=== PATIENT | female | born 1945 | race Caucasian/White ===

== ENCOUNTER → 2017-03-10 | Outpatient (CLI) | payer OTHER ==
[2016-03-12 13:56] VITALS: BP 129/77; PULSE 68
[~2017-03-10] MED LIST: CLR10 PO; FLUT0.0529 INTNAS; GABA-113 PO; GENTEAL EYE DROPS OPB; GLC/500 PO; LISI-788 PO; PRLSR20 PO; TAMO20TA47 PO
[2017-03-10 13:56] VITALS: BP 129/81; PULSE 87; TEMP 37; O2SAT 98
--- NOTE | 2017-03-10 15:16 | Radiation Oncology Follow-Up ---
Radiation Oncology Follow-Up Date of Visit Mar 10, 2017. Reason For Visit Annual follow-up Radiation Completion Date 08/16/15 Diagnosis (1) Malignant neoplasm of upper-outer quadrant of female breast Status: Resolved Onset Date: 11/23/2014 Histology Subtype: lobular Stage: lll Permanent Comment: Status post right breast carcinoma 1992 Status post mastectomy with TRAM flap reconstruction Status post systemic chemotherapy Antiestrogen therapy for 5 years Abnormal left breast mammogram Status post core biopsy 11/23/2014 revealing invasive lobular carcinoma estrogen receptor positive, progesterone receptor negative, HER-2/ghanshyam negative Status post left simple mastectomy and sentinel lymph node biopsy and axillary dissection February 05 2015 placement of tissue manuscripts curator Stage [id number] M0 Status post completion of radiation therapy 08/16/2015 received 6120 cGy Status post exchange of left adjustable implant for gel implant with open capsulotomy and She'll ectomy, revision right breast reconstruction with elevation of the breast mound, excision of a portion of the flap skin, and closure of the defect with local flap. Excision of bilateral lateral chest tissue and closure of resulting defects with local flaps 01/29/2016 Last Edited By: Toya Flowers on Mar 12, 2016 16:04 History of Present Illness Ms. Harris is a 71-year-old female without a family history of breast cancer. The patient's mother was diagnosed with ovarian cancer at age 66. Patient had a prior history of a right breast carcinoma diagnosed in 1992. She underwent a mastectomy with a TRAM flap reconstruction. She required systemic chemotherapy followed by 5 years of tamoxifen. She has had no evidence of recurrence in the right chest wall. She has been followed with screening left breast mammograms. Her most recent screening mammogram was on 11/17/2014 that was compared to prior images from 2013 and 2012. This showed mild asymmetry at the middle depths superiorly with irregular anterior parenchymal margin at 2:00. The area of question persisted on spot and additional views and was nonpalpable. A targeted ultrasound showed a hypoechoic irregular non-parallel indistinct shadowing area measuring 0.4 x 0.5 cm smaller than the mammographic abnormality. An ultrasound core biopsy was recommended. A prominent axillary lymph node was noted but he has been unchanged for years. On 11/23/2014 patient underwent an ultrasound-guided biopsy of the hypoechoic lesion noted within the left breast at the 2 o'clock position 3 cm in the nipple. This measured 0.5 x 0.5 x 0.6 cm. This tissue identified an invasive carcinoma, lobular type, grade 2. Estrogen receptors were strongly positive ( 100% nuclear positivity) progesterone receptor were negative (less than 1% nuclear positivity. HER-2/ghanshyam oncogene expression is negative. Accession #: [id number]. The patient subsequently met with Dr. Artie Pineda to discuss possible mastectomy and reconstruction given her history of a right breast carcinoma and TRAM flap reconstruction. They've talked about a left mastectomy with immediate placement of tissue manuscripts curator.. Patient was also seen by Dr. Talya Horton and the patient was scheduled for the left breast mastectomy with immediate reconstruction. This was performed on 02/05/2015. This revealed an infiltrating lobular carcinoma grade 1 of 3. Tumor however measured 3.0 x 2.5 x 1.5 cm with evidence of LCIS. The margins were negative. Tumor was located 2 cm from the deep margin. No lymphovascular or perineural invasion was seen. 14 lymph nodes were taken 7 of which contained metastatic disease. 3 nodes contained a macro metastasis and 4 nodes contained micrometastasis. The size of the largest metastatic deposit was a 2 cm. No extranodal extension was identified. Case: -01/09/2002-S. The patient is recovering well from surgery. She has the tissue manuscripts curator in place. They have not yet started the expansion. She is scheduled to see Dr. Slater for discussion of the role of adjuvant chemotherapy. This will likely be recommended. We were asked to see her in referral for evaluation and discussion of the role of adjuvant radiation. She underwent chemotherapy with Taxotere and cyclophosphamide. She received 4 cycles of treatment. She completed the chemotherapy 03/28/2015. She did not require any reductions in treatment or delay of treatment. She then returned to our office to undergo radiation therapy. She completed radiation therapy 08/16/2015. She received 6120 cGy. Interim History She's been doing well over this past year she does have mild joint discomfort associated with the tamoxifen. This is improved compared to the discomfort she felt when on the aromatase inhibitor. She has noted no changes to the reconstructed breast. There are no masses or tenderness and no axillary adenopathy. She has not had any difficulty with reaccumulation of the seromas that had recurred over last summer. Allergies Coded Allergies: Cephalexin (Verified Allergy, Mild, Rash , 03/10/17) Home Medications Scheduled Fluticasone Propionate (Nasal) (Flonase), 1-2 SPRAYS INTNAS QAM Gabapentin (Neurontin), 300 MG PO TID Lisinopril/Hctz (Zestoretic 20MG/25MG), 1 TAB PO QAM Metformin Hcl (Glucophage), 500 MG PO BID Omeprazole (Prilosec), 20 MG PO QAM Tamoxifen (Nolvadex), 20 MG PO DAILY Scheduled PRN Loratadine (Claritin), 10 MG PO QAM PRN for PRN [Genteal Eye Drops], 1 DROP OPB DAILY PRN for PRN Review of Systems Gastrointestinal: Symptoms: WNL Oral: Symptoms: No Problems Respiratory: Symptoms: WNL Urinary: Symptoms: WNL Comments: nocturia times1 Skin: Symptoms: No Problems Breast: Right Upper Arm Measurement: 33.5 Right Mid Arm Measurement: 26.7 Right Wrist Measurement: 16.2 Left Upper Arm Measurement: 36.5 Left Mid Arm Measurement: 26.8 Left Wrist Measurement: 15.7 Arm Dominence: Right Patient Cosmetic Evaluation: Excellent Staff Cosmetic Evalaluation: Excellent Physical Exam Vital Signs Date Time Temp Pulse Resp B/P (MAP) Pulse Ox O2 Delivery O2 Flow Rate FiO2 03/10/17 13:56 37.0 87 18 129/81 98 Pain: Side: Bilateral Patient Pain Scale: 0 - 10 Initial Pain Intensity: 0.0 Fatigue: None General Appearance: no apparent distress Eyes: normal inspection, EOMI ENT: normal ENT inspection, hearing grossly normal Neck: no adenopathy, thyroid normal Respiratory/Chest: lungs clear, no respiratory distress, no accessory muscle use Breast: Breast examination reveals bilateral TRAM flap reconstructions. There are no masses or tenderness and no axillary adenopathy. She has no skin retractions. There is no hyperpigmentation. Using the Guston score cosmesis she has a good outcome. Cardiovascular: regular rate, rhythm, no gallop, no murmur Abdomen: non tender, soft, no organomegaly Extremities: no pedal edema Neurologic/Psychiatric: no motor/sensory deficits, alert, normal mood/affect Skin: warm/dry Assessment & Plan Plan: Continuing her follow-up with her primary care provider and medical oncology. She continues on tamoxifen. She'll return to our office in 1 year. We asked her to call our office if she has any questions or concerns. Total Time In Follow-Up I spent 20 minutes speaking to the patient and performing examination. I spent 15 minutes reviewing information and completing note. Copy To Alli Price MD; Emil Slater M.D. Problem Qualifiers (1) Malignant neoplasm of upper-outer quadrant of female breast: Estrogen receptor status: positive Laterality: left Qualified Codes: C50.412 - Malignant neoplasm of upper-outer quadrant of left female breast; Z17.0 - Estrogen receptor positive status [ER+]
== END | disposition home or self-care (01) ==
LOC: C.ONC 13:44
PROVIDERS: ATTEND Physician Assistant Medical
DX: Z08 Encounter for follow-up examination after completed treatment for malignant neoplasm (principal); Z92.3 Personal history of irradiation; Z85.3 Personal history of malignant neoplasm of breast

== ENCOUNTER → 2018-03-09 | Outpatient (CLI) | payer OTHER ==
[2016-03-12 13:56] VITALS: BP 129/77; PULSE 68
[~2018-03-09] MED LIST changes: +CARBSOL4 OPB; -TAMO20TA47 PO; +TAMO20TA9 PO
[2018-03-09 13:27] VITALS: BP 166/91; PULSE 69; TEMP 36.7; O2SAT 95
--- NOTE | 2018-03-09 14:35 | Radiation Oncology Follow-Up ---
Radiation Oncology Follow-Up Date of Visit Mar 09, 2018. Reason For Visit Annual follow-up Radiation Completion Date 08/16/15 Diagnosis (1) Malignant neoplasm of upper-outer quadrant of female breast Status: Resolved Onset Date: 11/23/2014 Stage: lll Permanent Comment: Status post right breast carcinoma 1992 Status post mastectomy with TRAM flap reconstruction Status post systemic chemotherapy Antiestrogen therapy for 5 years Abnormal left breast mammogram Status post core biopsy 11/23/2014 revealing invasive lobular carcinoma estrogen receptor positive, progesterone receptor negative, HER-2/ghanshyam negative Status post left simple mastectomy and sentinel lymph node biopsy and axillary dissection February 05 2015 placement of tissue legal internship Stage [id number] M0 Status post completion of radiation therapy 08/16/2015 received 6120 cGy Status post exchange of left adjustable implant for gel implant with open capsulotomy and , revision right breast reconstruction with elevation of the breast mound, excision of a portion of the flap skin, and closure of the defect with local flap. Excision of bilateral lateral chest tissue and closure of resulting defects with local flaps 01/29/2016 Last Edited By: Toya Flowers on Mar 09, 2018 14:01 History of Present Illness Ms. Harris is without a family history of breast cancer. The patient's mother was diagnosed with ovarian cancer at age 66. Patient had a prior history of a right breast carcinoma diagnosed in 1992. She underwent a mastectomy with a TRAM flap reconstruction. She required systemic chemotherapy followed by 5 years of tamoxifen. She has had no evidence of recurrence in the right chest wall. She has been followed with screening left breast mammograms. Her most recent screening mammogram was on 11/17/2014 that was compared to prior images from 2013 and 2012. This showed mild asymmetry at the middle depths superiorly with irregular anterior parenchymal margin at 2:00. The area of question persisted on spot and additional views and was nonpalpable. A targeted ultrasound showed a hypoechoic irregular non-parallel indistinct shadowing area measuring 0.4 x 0.5 cm smaller than the mammographic abnormality. An ultrasound core biopsy was recommended. A prominent axillary lymph node was noted but he has been unchanged for years. On 11/23/2014 patient underwent an ultrasound-guided biopsy of the hypoechoic lesion noted within the left breast at the 2 o'clock position 3 cm in the nipple. This measured 0.5 x 0.5 x 0.6 cm. This tissue identified an invasive carcinoma, lobular type, grade 2. Estrogen receptors were strongly positive ( 100% nuclear positivity) progesterone receptor were negative (less than 1% nuclear positivity. HER-2/ghanshyam oncogene expression is negative. Accession #: [id number]. The patient subsequently met with Dr. Artie Pineda to discuss possible mastectomy and reconstruction given her history of a right breast carcinoma and TRAM flap reconstruction. They've talked about a left mastectomy with immediate placement of tissue legal internship.. Patient was also seen by Dr. Talya Horton and the patient was scheduled for the left breast mastectomy with immediate reconstruction. This was performed on 02/05/2015. This revealed an infiltrating lobular carcinoma grade 1 of 3. Tumor however measured 3.0 x 2.5 x 1.5 cm with evidence of LCIS. The margins were negative. Tumor was located 2 cm from the deep margin. No lymphovascular or perineural invasion was seen. 14 lymph nodes were taken 7 of which contained metastatic disease. 3 nodes contained a macro metastasis and 4 nodes contained micrometastasis. The size of the largest metastatic deposit was a 2 cm. No extranodal extension was identified. Case: -01/09/2002-S. The patient is recovering well from surgery. She has the tissue legal internship in place. They have not yet started the expansion. She is scheduled to see Dr. Slater for discussion of the role of adjuvant chemotherapy. This will likely be recommended. We were asked to see her in referral for evaluation and discussion of the role of adjuvant radiation. She underwent chemotherapy with Taxotere and cyclophosphamide. She received 4 cycles of treatment. She completed the chemotherapy 03/28/2015. She did not require any reductions in treatment or delay of treatment. She then returned to our office to undergo radiation therapy. She completed radiation therapy 08/16/2015. She received 6120 cGy. Interim History She is noted no changes to her reconstructed breasts. She is noted no masses or tenderness and no change of the axilla. She has had no swelling of her arm. She was seen in medical oncology and a node was palpated in the left supraclavicular area. She was sent for an ultrasound. That was performed on December 16, 2017. This revealed a 5 mm in diameter morphologically benign-appearing lymph node in the left supraclavicular region. She has noticed no changes in this area. She continues on tamoxifen. She denies side effects. She previously had hot flashes and these have resolved. Allergies Coded Allergies: Cephalexin (Verified Allergy, Mild, Rash , 03/10/17) Home Medications Scheduled Fluticasone Propionate (Nasal) (Flonase), 1-2 SPRAYS INTNAS QAM Gabapentin (Neurontin), 300 MG PO TID Lisinopril/Hctz (Zestoretic 20MG/25MG), 1 TAB PO QAM Metformin Hcl (Glucophage), 500 MG PO BID Omeprazole (Prilosec), 20 MG PO QAM Tamoxifen (Nolvadex), 20 MG PO DAILY Scheduled PRN Carboxymethylcellulose Sodium (Theratears), 1 DROP OPB DAILY PRN for DRYNESS Loratadine (Claritin), 10 MG PO QAM PRN for PRN Review of Systems Gastrointestinal: Symptoms: WNL Oral: Symptoms: No Problems Respiratory: Symptoms: WNL Urinary: Symptoms: WNL Comments: nocturia times1 Skin: Symptoms: No Problems Breast: Right Upper Arm Measurement: 35.0 Right Mid Arm Measurement: 26.0 Right Wrist Measurement: 16.0 Left Upper Arm Measurement: 36.0 Left Mid Arm Measurement: 25.8 Left Wrist Measurement: 16.0 Arm Dominence: Right Patient Cosmetic Evaluation: Good Staff Cosmetic Evalaluation: Excellent Physical Exam Vital Signs Date Time Temp Pulse Resp B/P (MAP) Pulse Ox O2 Delivery O2 Flow Rate FiO2 03/09/18 13:27 36.7 69 16 166/91 95 Fatigue: None General Appearance: no apparent distress Eyes: normal inspection, EOMI ENT: normal ENT inspection, hearing grossly normal Neck: thyroid normal, + pertinent finding (Very subtle changes of the left supraclavicular area.) Respiratory/Chest: lungs clear Cardiovascular: regular rate, rhythm, no gallop, no murmur Abdomen: non tender, soft Extremities: no pedal edema Neurologic/Psychiatric: no motor/sensory deficits, alert, normal mood/affect Skin: warm/dry Pain Management Patient Reports Pain: No Side: Bilateral Pain Location: None Patient Preferred Pain Scale: 0 - 10 Initial Pain Intensity: 0.0 Pain Management Plan She denies pain therefore requires no pain management. Laboratory Laboratory Results: not applicable Pathology Pathology Results: were reviewed, and pertinent findings noted in HPI Imaging Imaging Studies: were reviewed Imaging Comments Reviewed in the interim history. Assessment & Plan Plan: Continue regular follow-up with medical oncology. She continues on tamoxifen. She will be seen again in medical oncology in May and the supraclavicular area will be rechecked. She will continue regular follow-up with her primary care provider. We asked her to return to our office in 1 year. She may call if she has any questions or concerns in the interim. Total Time In Follow-Up I spent 20 minutes speaking to the patient in performing examination. I spent 15 minutes reviewing information and completing this note. [place] Copy To Alli Price MD; Emil Slater M.D. Problem Qualifiers (1) Malignant neoplasm of upper-outer quadrant of female breast: Estrogen receptor status: positive Laterality: left Qualified Codes: C50.412 - Malignant neoplasm of upper-outer quadrant of left female breast; Z17.0 - Estrogen receptor positive status [ER+]
== END | disposition home or self-care (01) ==
LOC: C.ONC 13:20
PROVIDERS: ATTEND Physician Assistant Medical
DX: Z08 Encounter for follow-up examination after completed treatment for malignant neoplasm (principal); Z92.3 Personal history of irradiation; Z85.3 Personal history of malignant neoplasm of breast

== ENCOUNTER 2020-05-04 05:10 | Observation (INO) ==
--- NOTE | 2020-04-10 08:43 | PAT Medication Instructions ---
Medication Instructions Date of Service April 10, 2020 Home Medications amlodipine 5 mg tablet 5 mg PO QAM cholecalciferol (vitamin D3) 125 mcg (5,000 unit) capsule 125 mcg PO QAM lisinopril 20 mg tablet 20 mg PO QAM mecobalamin (vitamin B12) 1,000 mcg chewable tablet 1,000 mcg PO QAM multivitamin 1 tab PO QAM fluticasone propionate [Flonase] 1 spray INTRANASAL PM gabapentin 300 mg PO TID metformin 500 mg PO BID omeprazole 20 mg PO QAM tamoxifen 20 mg PO PM DO NOT take the morning of surgery cholecalciferol (vitamin D3) 125 mcg (5,000 unit) capsule 125 mcg PO QAM lisinopril 20 mg tablet 20 mg PO QAM mecobalamin (vitamin B12) 1,000 mcg chewable tablet 1,000 mcg PO QAM multivitamin 1 tab PO QAM metformin 500 mg PO BID Take morning of surgery With a small sip of water, OTHERWISE NOTHING TO EAT OR DRINK AFTER MIDNIGHT: amlodipine 5 mg tablet 5 mg PO QAM gabapentin 300 mg PO TID omeprazole 20 mg PO QAM Take evening before surgery fluticasone propionate [Flonase] 1 spray INTRANASAL PM gabapentin 300 mg PO TID metformin 500 mg PO BID tamoxifen 20 mg PO PM Other Notes If you have any questions please call us at [phone] or [phone] or [phone] or [phone]
--- NOTE | 2020-04-11 08:53 | Anesthesiology Consultation ---
Date of Service April 11, 2020 Assessment & Plan (1) Encounter for pre-operative examination: COVID Status: As of 04/11 assessment, patient denies travel to endemic area, known exposure/sick contacts, or symptoms of COVID19. Patient instructed that they and their household members must follow strict social distancing guidelines, wear a mask in public and avoid travel for 14 days prior to surgery. Preoperative COVID19 testing to be completed prior to surgery per surgeon's arr angements. Patient made aware to self-isolate as much as possible between COVID testing and surgery. Chart Review Chart Review: Acceptable Risk for Surgery and Patient seen in Pre Admission Testing Teaching & Discussion Instructed NPO after midnight before surgery, except medications with 15 cc of water. Medication instructions provided according to the PAT guidelines. History Surgery Operation Date: 05/04/20 13:00 Proposed Procedures p Left Total Knee Arthroplasty - Cj Baker DO Height/Weight Height: 5 ft 3 in Weight: 85.4 kg Allergies Allergy/AdvReac Type Severity Reaction Status Date / Time cephalexin Allergy Mild Rash Verified 04/09/20 09:03 ethinyl estradiol Allergy Mild sinus Verified 04/09/20 09:03 [From Seasonale (91)] aches, sneezing, congestion levonorgestrel Allergy Mild sinus Verified 04/09/20 09:03 [From Seasonale (91)] aches, sneezing, congestion Medications Home Medications Medication Instructions Recorded Confirmed Last Taken amlodipine 5 mg tablet 5 mg PO QAM 03/17/19 04/09/20 Unknown cholecalciferol (vitamin D3) 125 125 mcg PO QAM 02/29/20 04/09/20 Unknown mcg (5,000 unit) capsule lisinopril 20 mg tablet 20 mg PO QAM 02/29/20 04/09/20 Unknown mecobalamin (vitamin B12) 1,000 1,000 mcg PO QAM 02/29/20 04/09/20 Unknown mcg chewable tablet multivitamin 1 tab PO QAM 02/29/20 04/09/20 Unknown fluticasone propionate [Flonase] 1 spray INTRANASAL PM 04/09/20 04/09/20 Unknown gabapentin 300 mg PO TID 04/09/20 04/09/20 Unknown metformin 500 mg PO BID 04/09/20 04/09/20 Unknown omeprazole 20 mg PO QAM 04/09/20 04/09/20 Unknown tamoxifen 20 mg PO PM 04/09/20 04/09/20 Unknown Past Medical History Medical History (Updated 04/11/20 @ 08:58 by Sawyer Rincon) Borderline diabetes GERD (gastroesophageal reflux disease) HX: breast cancer BILAT Hypertension 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 NO MORE PORT Past Anesthesia History No Hx of Anesthesia Complications and No Family Hx of Anesthesia Complications History of PONV No Hx of Motion Sickness and History of PONV (SINGLE EPISODE, MAY HAVE BEEN 2/2 PAIN MED ON EMPTY STOMACH) Social History Smoking Status: Never smoker Do You Dip or Chew Tobacco: No Hx Alcohol Use: Yes Alcohol type: beer, wine and hard liquor alcohol intake frequency: a few times a month Hx Substance Use: No substance use type: does not use Review of Systems Pt denies any recent chest pain, shortness of breath, palpitations, cough, fever, URI, or uncontrolled acid reflux. Physical Exam Vital Signs BP: 121/72 P: 82bpm SPO2: 97% T: 97.8 F R: 18 ENMT Mouth: + dental bridge (upper front teeth) and + dental restorations; no chipped teeth and no loose teeth Thyromental Distance: > or= 3.5 Finger Breadths Mallampati Class: II Neck normal visual inspection; neck extension not limited Respiratory normal respiratory effort Auscultation: lungs clear to auscultation bilaterally Cardiovascular Rate/Rhythm: regular rate and regular rhythm Heart Sounds: no murmur Extremities: no edema Testing Laboratory Results 04/11/20 09:06 04/11/20 09:16 PT 10.3 Seconds (9.0-12.0) 04/11/20 09:06 INR 1.0 (0.9-1.1) 04/11/20 09:06 APTT 27.1 Seconds (21.0-31.0) 04/11/20 09:06 Blood Type A Positive 04/11/20 09:06 Antibody Screen NEGATIVE 04/11/20 09:06 * "borderline" DM per patient. On Metformin. Electrocardiogram Date: 04/11/20 Findings: + NSR @ (75bpm) Chest X-Ray Date: 04/11/20 Cardiac enlargement with no active disease in the chest.
[2020-04-11 10:30] LABS: Basophils # (auto) 0.02 K/uL (0-0.2); Basophils % (auto) 0.2 %; Eosinophils % (auto) 1.1 %; Hematocrit (blood only) 36.5 % (37-47); Hemoglobin 12.2 g/dL (12.0-16.0); Immature Granulocytes # (auto) 0.03 K/uL (0.00-0.02); Immature Granulocytes % (auto) 0.3 %; Lymphocytes # (auto) 1.07 K/uL (1.2-3.4); Lymphocytes % (auto) 12.2 %; Mean Corpuscular Hemoglobin 30.7 pg (25-34); Mean Corpuscular Hgb Conc 33.4 g/dL (32-36); Mean Corpuscular Volume 91.7 fL (80-100); Mean Platelet Volume 10.1 fL (7.4-10.4); Monocytes # (auto) 0.43 K/uL (0.11-0.59); Monocytes % (auto) 4.9 %; Neutrophils # (auto) 7.11 K/uL (1.4-6.5); Neutrophils % (auto) 81.3 %; Platelet Count 285 K/uL (130-400); RDW Standard Deviation 46.7 fL (36.4-46.3); Red Blood Count 3.98 M/uL (4.2-5.4); White Blood Count 8.76 K/uL (4.8-10.8)
[2020-04-11 10:41] LABS: Partial Thromboplastin Time 27.1 Seconds (21.0-31.0); Prothrombin Time 10.3 Seconds (9.0-12.0)
[2020-04-11 11:18] LABS: BUN Creatinine Ratio 19.9 (10-20); Calcium 8.9 mg/dl (8.5-10.1); Creatinine Clr Calc Pharmacy 56.8 ml/min; Potassium 3.8 mmol/L (3.5-5.1)
--- NOTE | 2020-04-11 11:41 | XRay Report ---
TWO VIEW CHEST CLINICAL HISTORY: Preoperative examination. FINDINGS: PA and lateral chest radiographs are obtained. No prior studies are available for compariso n at the time of dictation. The heart is enlarged. The pulmonary vascular structures noncongested. The lungs and pleural spaces are clear. There is no pneumothorax. The skeletal structures are osteope jeremy. The bony thorax appears intact. Surgical clips are noted in the right axilla. Cholecystectomy cl ips are seen in the right upper quadrant. IMPRESSION: Cardiac enlargement with no active disease in the chest. ACT 112: Negative or not required by law. Electronically signed by: Naseem Sanchez M.D. 04/11/2020 11:40 AM
--- NOTE | 2020-04-13 06:00 | Electrocardiogram Report ---
Test Reason : Blood Pressure : / mmHG Vent. Rate : 075 BPM Atrial Rate : 075 BPM P-R Int : 126 ms QRS Dur : 088 ms QT Int : 382 ms P-R-T Axes : 065 056 076 degrees QTc Int : 426 ms Normal sinus rhythm Normal ECG When compared with ECG of 22-JAN-2015 10:06, No significant change was found Confirmed by Tristin Velazquez ([id number]) on 04/13/2020 6:00:07 AM Referred By: Cj Baker Confirmed By:Tristin Velazquez
--- NOTE | 2020-05-03 08:00 | History & Physical Report ---
Date of Service May 03, 2020 Assessment & Plan (1) Osteoarthritis of left knee: We will proceed with a left total knee arthroplasty. Postoperatively she will be placed on aspirin for DVT prophylaxis and kept overnight in the hospital for postoperative medical management. She is undecided at this point on postoperative physical therapy and will talk to case management about that. Present on Admission?: Yes History of Present Illness Chief Complaint: Primary osteoarthritis of the left knee Primary Care Provider: Alli Price MD Serena is a pleasant 75-year-old female whom I been treating for primary osteoarthritis of her left knee for the past 3 years. I did given her serial i njections. She tried a Synvisc injection without much relief. Unfortunately her knee pain starting to affect her daily activities. After failing conservative treatment, she has elected to proceed with a left total knee arthroplasty. Allergies Allergy/AdvReac Type Severity Reaction Status Date / Time cephalexin Allergy Mild Rash Verified 04/09/20 09:03 ethinyl estradiol Allergy Mild sinus Verified 04/09/20 09:03 [From Seasonale (91)] aches, sneezing, congestion levonorgestrel Allergy Mild sinus Verified 04/09/20 09:03 [From Seasonale (91)] aches, sneezing, congestion Home Medications Home Medications Medication Instructions Recorded Confirmed Type amlodipine 5 mg tablet 5 mg PO QAM 03/17/19 04/09/20 History cholecalciferol (vitamin D3) 125 125 mcg PO QAM 02/29/20 04/09/20 History mcg (5,000 unit) capsule lisinopril 20 mg tablet 20 mg PO QAM 02/29/20 04/09/20 History mecobalamin (vitamin B12) 1,000 1,000 mcg PO QAM 02/29/20 04/09/20 History mcg chewable tablet multivitamin 1 tab PO QAM 02/29/20 04/09/20 History fluticasone propionate [Flonase] 1 spray INTRANASAL PM 04/09/20 04/09/20 History gabapentin 300 mg PO TID 04/09/20 04/09/20 History metformin 500 mg PO BID 04/09/20 04/09/20 History omeprazole 20 mg PO QAM 04/09/20 04/09/20 History tamoxifen 20 mg PO PM 04/09/20 04/09/20 History Past Med/Surg History Medical History Borderline diabetes GERD (gastroesophageal reflux disease) HX: breast cancer BILAT Hypertension IgG deficiency NOT CURRENTLY BEING TREATED, FOLLOWS WITH ALLERGY/IMMUNOLOGY AT [facility] Osteoarthritis Seasonal allergies Surgical History History of cholecystectomy History of colonoscopy History of hysterectomy History of tonsillectomy History of tooth extraction WISDOM TEETH AND OTHERS Hx of bilateral mastectomy 1992, 2014 > CHEMO. NO MORE PORT Social History Smoking Status: Never smoker Second Hand Exposure: Yes ( KID); Hx Alcohol Use: Yes Alcohol type: beer, wine and hard liquor Hx Substance Use: No Preferred Language: Irish Communication Ability: Effective [employer] Officer Required: No Beliefs That Will Affect Care: None Current Living Situation: Spouse Feels Safe at Home: Yes Assistive Devices: Glasses Review of Systems Review of Systems: All systems reviewed & are unremarkable except as noted in HPI & below Physical Exam Constitutional: WD/WN, vitals as above Eyes: PERRL, conjunctivae normal, anicteric sclerae ENMT: external ear and nose normal, oropharynx normal Neck: trachea midline, no thyromegaly Respiratory: normal respiratory effort Cardiovascular: RRR, no murmur, no edema Gastrointestinal (Abdomen): normal bowel sounds, soft, nontender, no hepatosplenomegaly Musculoskeletal: On physical examination of the left knee there is a trace effusion. There is near full range of motion and no evidence of instability. There is significant tenderness palpation along the medial and lateral joint lines and over the distal femoral condyles. Psychiatric: A+Ox3, euthymic affect Results & Data Results & Data ([facility]) Diagnostic Findings Radiographs of the left knee demonstrate advanced osteoarthritis with joint space narrowing osteophyte formation and [id number] articulation. PG Care Time/CCT Total # of Minutes Spent Total Time Spent with Patient: Total time spent is greater than 50% in coordination of care (as documented) at patient's floor/unit and/or counseling patient: Coding Level of Care Code 30235 OBS Care - Level 2 Diagnoses Osteoarthritis of left knee M17.12
[~2020-05-04 05:10] MED LIST changes: -CARBSOL4 OPB; -CLR10 PO; -FLUT0.0529 INTNAS; -GABA-113 PO; -GENTEAL EYE DROPS OPB; -GLC/500 PO; -LISI-788 PO; -PRLSR20 PO; -TAMO20TA9 PO; +[UNRECOGNIZED DRUG - REMARK] SCH
[2020-05-04] MEDS ORDERED: dexAMETHasone 4 MG TAB PO SCH (06:00)
[2020-05-04] MEDS ORDERED: LR 60ML/HR IV SCH (06:00)
[2020-05-04] MEDS ORDERED: ROPIVACAINE 0.5% HCL/PF 150 MG, BUPIVACAINE 0.5% MPF 30 ML, EPINEPHrine 30MG/30ML (OR U... INSTIL SCH (06:00)
[2020-05-04] MEDS ORDERED: FAMOTIDINE 20 MG TAB PO SCH (06:00)
[2020-05-04] MEDS ORDERED: LR 500ML BOLUS, THEN 15ML/HR IV SCH (06:00)
[2020-05-04] MEDS ORDERED: GABAPENTIN 300 MG CAP PO SCH (06:00)
[2020-05-04] MEDS ORDERED: ACETAMINOPHEN 500 MG TAB PO SCH (06:00)
[2020-05-04] MEDS ORDERED: CEFAZOLIN 2000MG 2,000 MG/15 ML SYR IV SCH (06:00)
[2020-05-04] MEDS ORDERED: TRANEXAMIC ACID 1,000 MG **IV Intra-op IV SCH (06:00)
[2020-05-04] MEDS ORDERED: TRANEXAMIC ACID 1,000 MG **IV Pre-op IV SCH (06:00)
[2020-05-04] MEDS ORDERED: BUPIVACAINE 0.5 % 5 MG/1 ML PF 10ML VIAL ONE (06:25)
[2020-05-04] MEDS ORDERED: fentaNYL citrate 100 MCG/2 ML VIAL IV PRN (06:32)
[2020-05-04] MEDS ORDERED: ePHEDrine sulfate 50 MG/ML AMP IV PRN (06:32)
[2020-05-04] MEDS ORDERED: ONDANSETRON INJ 2 MG/ML 2 ML VIAL IV PRN ×2 (06:32→10:15)
[2020-05-04] MEDS ORDERED: ATROPINE SULFATE 0.1 MG/ML 10ML SYR IV PRN (06:32)
[2020-05-04] MEDS ORDERED: fentaNYL citrate 100 MCG/2 ML VIAL ONE (06:33)
[2020-05-04] MEDS ORDERED: ORTHO JOINT ANESTHETIC ONE (06:33)
[2020-05-04] MEDS ORDERED: MIDAZOLAM HCL 1 MG/ML 2ML VIAL ONE (06:33)
[2020-05-04] MEDS ORDERED: LIDOCAINE HCL 2% 2 ML VIAL/AMP(20MG/ML) INFIL ONE (06:42)
[2020-05-04] MEDS ORDERED: PROPOFOL IV EMULSION 10 MG/ML 20 ML VIAL IV ONE (06:42)
--- NOTE | 2020-05-04 06:52 | History & Physical Bridge Note ---
Date of Service May 04, 2020 History & Physical Bridge Note I have examined the patient, reviewed the History & Physical and in the interval since the performance of the History & Physical I have noted the following changes of clinical significance: no changes noted
[2020-05-04] MEDS ORDERED: CLINDAMYCIN PHOS 300 MG/2 ML VIAL ONE (07:07)
[2020-05-04] MEDS ORDERED: PHENYLEPHRINE HCL 10 MG/ML VIAL ONE (07:28)
[2020-05-04] MEDS ORDERED: CLINDAMYCIN 900 MG in DEXTROSE 5% 50 ML IV ONE (07:35)
--- NOTE | 2020-05-04 08:15 | Operative Report ---
PG Post Operative Report Pre & Post Diagnosis Operation Date: 05/04/20 07:00 Pre-Op Diagnosis: Left Knee Osteoarthritis Post-Op Diagnosis: Left Knee Osteoarthritis I identified the patient and participated in the time-out.: Yes Procedure Operation Date: 05/04/20 07:00 Actual Procedures p Left Total Knee Arthroplasty(Left) - Cj Baker DO Surgeon Cj Baker DO Box Person Cj Ding PAC Estimated Blood Loss 10 Findings Consistent with Post-Op Diagnosis Specimens Left femoral and tibial bone Complications none Disposition Disposition: Recovery Room Indications Serena is a pleasant 75-year-old female who presented my office with complaints of chronic increasing left knee pain. X-rays and clinical examination have been diagnostic for advanced osteoarthritis of the left knee. After failing years of conservative treatment, she has elected to proceed with a left total knee arthroplasty. Description of Procedure Implants used: I used a Justyn Persona total knee arthroplasty system with a size 8 standard femur, E tibia, 32 patella, and a size 11 polyethylene bearing. All components were cemented in place with Palacos G cement. Serena arrived [facility] for the above procedure. She was seen in the preoperative holding area and the operative extremity was identified and signed. She was given a preoperative antibiotic, TXA, a spinal anesthetic and an adductor nerve block. She was taken back to the operating room and laid on the table in supine position. She was given basic sedation. The operative knee was then prepped and draped in sterile fashion. A timeout was done, and the patient and the operative extremity was properly identified. A midline incision was made directly over the patella. Dissection was taken down to the extensor mechanism. A subvastus arthrotomy was used. The medial retinaculum was released and the fat pad was mostly excised. The knee was flexed and the ACL, PCL, and meniscus were removed. A drill was sent down the center of the femoral canal followed by an intramedullary pete. Off that pete a distal femoral cutting block was placed. 9 mm was resected off the distal femur at 5 of valgus. A posterior referencing AP sizing guide was then placed on the distal femur. The femur measured to be a size 8 standard. 2 drill holes were placed in 3 of external rotation. A 4-in-1 cutting block was then impacted into place. Anterior, posterior, and chamfer cuts were then made. The proximal tibia was then exposed. An external tibial alignment guide was placed. A tibial cut guide was then anchored in pl breanne and the proximal tibia was then resected. The posterior aspect of the knee was then opened up and any additional meniscus fragments and osteophytes were removed. The tibia measured to be a size E. The tibial plate was then placed in the appropriate rotation and the tibia was drilled and punched. Trial components were then placed. I used a size 11 medial congruent polyethylene insert. The knee was brought through a full range of motion and felt to be stable. The peg holes for the femoral component were then drilled. The patella was then everted and 9 mm was resected off the posterior aspect of the patella. The patella measured to be a size 32. 3 peg holes were then drilled. A trial patella was placed. The knee was once again brought through a full range of motion and felt to be stable. Trial components were then removed. The surrounding soft tissues were injected with 100 cc of an orthopedic pain control cocktail. All components were then cemented into place with Palacos G cement. The final polyethylene insert was then snapped into place. Once cement was dry the tourniquet was deflated. Hemostasis was obtained. A dilute betadyne lavage was then done for 3 minutes. The joint was then irrigated with normal saline solution. The subvastus arthrotomy was then closed with #1 Vicryl suture. The skin was closed with 2-0 Vicryl, 3-0V lock suture, and wayne. A Silverlon and a soft compressive dressing were placed. She was then transferred to a hospital bed and taken to the postanesthesia care unit in stable condition. She tolerated the procedure well. Cj Ding PA-C, was present for the entire procedure. He was critical for patient positioning, prepping, draping, retraction exposure, wound closure and application of sterile dressing. I attest to the content of the Intraoperative Record and any orders documented therein. Any exceptions are noted below.
--- NOTE | 2020-05-04 09:27 | XRay Report ---
XR knee LT 1 or 2V routine HISTORY: 75 years-old Female Surgical Post Op left knee total joint arthroplasty COMPARISON: Knee radiographs 02/08/2020 TECHNIQUE: 2 views of the left knee FINDINGS: Left knee total joint arthroplasty and patella resurfacing. Anterior midline skin wayne are noted a long with expected postsurgical soft tissue swelling and deep tissue air with surgical drainage phillip ter. No acute fracture, or unexpected radiopaque foreign body. IMPRESSION: Left knee total joint arthroplasty and patella resurfacing with expected postoperative ch anges. ACT 112: Negative or not required by law. The above report was generated using voice recognition software. It may contain grammatical, syntax o r spelling errors. Electronically signed by: Eduardo Grace M.D. 05/04/2020 9:26 AM
--- NOTE | 2020-05-04 09:47 | Anesthesiology Progress Note ---
Date of Service May 04, 2020 Anesthesia Post Procedure Vital Signs Vital Signs: Temp Pulse Pulse Resp BP Pulse Ox 05/04/20 09:35 80 20 114/68 96 05/04/20 09:25 79 14 117/66 94 05/04/20 09:15 85 18 119/67 94 05/04/20 09:05 85 18 122/68 95 05/04/20 08:55 85 22 104/67 98 05/04/20 08:45 81 24 108/61 98 05/04/20 08:38 97.0 F L 86 14 109/62 99 05/04/20 05:58 98.2 F 86 20 143/87 H 100 Transfer of Care Handoff Completed per policy Notes Mental Status: alert / awake / arousable and participated in evaluation Patient Amnestic to Procedure: Yes Nausea / Vomiting: adequately controlled Pain: adequately controlled Airway Patency, RR, SpO2: stable & adequate BP & HR: stable & adequate Hydration State: stable & adequate Neuraxial Anesthesia: was administered and sensory block is resolving Anesthetic Complications: no major complications apparent and Pt Satisfied with anesthetic care
[2020-05-04] MEDS ORDERED: NALOXONE HCL 0.4 MG/1 ML VIAL/CARP IV PRN (10:15)
[2020-05-04] MEDS ORDERED: HYDROmorphone INJ 0.5 MG/0.5 ML SYR IV PRN (10:15)
[2020-05-04] MEDS ORDERED: OXYCODONE HCL IR 5 MG TAB (IMMEDIATE RELEASE) PO PRN (10:15)
[2020-05-04] MEDS ORDERED: MAGNESIUM HYDROXIDE SUSP 30 ML UDC PO PRN (10:15)
[2020-05-04] MEDS ORDERED: METOCLOPRAMIDE HCL INJ 5 MG/ML 2 ML VIAL IV PRN (10:15)
[2020-05-04] MEDS ORDERED: bisacodyL 10 MG SUPP PR PRN (10:15)
[2020-05-04] MEDS ORDERED: GLUCOSE 40% GEL 15 GM TUBE PO PRN (10:45)
[2020-05-04] MEDS ORDERED: GLUCOSE 10 TABS/TUBE PO PRN (10:45)
[2020-05-04] MEDS ORDERED: GLUCAGON FOR INJ 1 MG VIAL IM PRN (10:45)
[2020-05-04] MEDS ORDERED: DEXTROSE 50% 50 ML SYRINGE IV PRN (10:45)
[2020-05-04] MEDS ORDERED: CARBOHYDRATES FOR HYPOGLYCEMIA PO PRN (10:45)
[2020-05-04] MEDS ORDERED: PHARMACY GLYCEMIC MGMT CONSULT PRN (10:51)
[2020-05-04] MEDS: MULTIVITAMIN TAB PO SCH (11:25)
[2020-05-04] MEDS: lisinopriL 20 MG TAB PO SCH (11:25)
[2020-05-04] MEDS: DOCUSATE SODIUM 100 MG CAP PO SCH ×2 (11:25→21:17)
[2020-05-04] MEDS: ASPIRIN 81 MG ECTAB PO SCH ×2 (11:25→21:17)
[2020-05-04] MEDS: SODIUM CHLORIDE 0.9% 1000ML 1,000 ML IV SCH ×2 (11:26→20:27)
[2020-05-04] MEDS: KETOROLAC TROMETHAMINE 15 MG/ML VIAL IV SCH ×3 (11:26→23:50)
[2020-05-04] MEDS ORDERED: NovoLIN-N (NPH) PER UNIT CHARGE SQ ONE (11:30)
[2020-05-04] MEDS: INSULIN ASPART 100 UNITS/ML 3 ML PEN SC SCH ×3 (12:33→21:15)
--- NOTE | 2020-05-04 13:12 | Pharmacy Report ---
Glycemic Control Consultation - Date of Service May 04, 2020 - Scope Scope: Glycemic Pharmacist consulted for glycemic control and to write orders per [facility] inpatient glycemic control protocol. - Objective Weight: 85.4 kg Accuchecks BSG (last 24hrs): 05/04/20 05/04/20 05:49 12:04 POC Glucose 135 H 165 H - Recent Pertinent Medications Outpatient Anti-diabetic Regimen: * Metformin ER 500 mg PO BID * A1c = __% ordered for 05/05/20 Risk Factors for Insulin Resistance: * Steroids: Decadron 8 mg PO preop x 1 today AM. * Infection: Clindamycin 600 mg IV Q8h x 2 doses postop * IVF: NS @ 100 ml/hr * Recent Surgery: L TKA today. * Diet: T2DM - Assessment & Plan Assessment & Plan: ASSESSMENT: * 75 y/o F admitted for L total knee arthroplasty. Patient has Type 2 diabetes managed at home with only oral Metformin. * Oral agents are not recommended for inpatient use d/t drug interactions, changing PO intake, and difficulty titrating for acute hyper/hypoglycemia. ADA recommends re-initiating outpatient oral agents 1-2 days prior to discharge if/when appropriate if they were held on admission. * Will hold oral agents for admission and utilize SQ basal bolus insulin regimen which is the recommended regimen for inpatient glycemic control. * Will initiate weight based insulin dosing for insulin warren patient and titrate based on BSG trends. * Patient received one dose of oral decadron this AM prior to surgery. To prevent steroid induced hyperglycemia, ordered one dose NPH insulin with lunch today. * Since patient's A1c is unavailable, will wait till tomorrow's fasting BSG to determine if patient might need more basal insulin coverage. * Novolog parameters ordered based on weight and using moderate stress factor of 2. PLAN FOR INPATIENT GLYCEMIC CONTROL: * Holding outpatient oral diabetes medications * Basal insulin * NPH 15 units x 1 dose with lunch today. * Bolus insulin * NovoLog per scale ACHS or Q6hrs while NPO * Goal Range: Low 110 mg/dL - High 140 mg/dL * Correction Factor: 25 mg/dL/unit * Nutritional / Prandial insulin per carb ratio of 1 unit per 9 grams CHO consumed * Please note that the plan above was derived based on current level of insulin resistance and hospital stress. These recommendations are appropriate for inpatient admission only. Plan of care upon discharge will need to be reassessed to avoid potential outpatient hypo/hyperglycemia. Thank you.
[2020-05-04] MEDS: ACETAMINOPHEN 500 MG TAB PO SCH ×2 (13:40→21:19)
[2020-05-04] MEDS: GABAPENTIN 300 MG CAP PO SCH ×2 (13:40→21:18)
[2020-05-04] MEDS: CLINDAMYCIN 600 MG in DEXTROSE 5% 50 ML IV SCH ×2 (15:31→22:48)
[2020-05-04] MEDS ORDERED: TAMOXIFEN CITRATE 10 MG TABLET PO SCH (21:00)
[2020-05-04] MEDS ORDERED: SENNA 8.6 MG TAB PO SCH (21:00)
[2020-05-04] MEDS ORDERED: FLUTICASONE PROPIONATE NA SPR 16 GM BTL SCH (21:00)
[2020-05-05] MEDS: ACETAMINOPHEN 500 MG TAB PO SCH (05:44)
[2020-05-05] MEDS: KETOROLAC TROMETHAMINE 15 MG/ML VIAL IV SCH ×2 (05:44→11:49)
--- NOTE | 2020-05-05 07:53 | Orthopedic Progress Note ---
Date of Service May 05, 2020 Assessment & Plan (1) Status post left knee replacement: Overall she is doing very well. She is not having much pain in the left knee. She will be seen by physical therapy this morning for ambulation and range of motion exercises. She is on aspirin for DVT prophylaxis. She can be discharged home later today. She will follow-up with orthopedics in 2 weeks. Present on Admission?: No Admission and Anticipated Discharge Date Admission Date: May 04, 2020 Fauzia Lyons was seen and examined at bedside this morning. Overall she is doing very well. She is not having much pain in the left knee. She has been up and ambulating to the bathroom. She has no complaints. Physical Exam Musculoskeletal: On physical examination of the left knee, the dressing is clean and dry. Her leg is out in full extension. She has active dorsiflexion and plantarflexion of the left ankle. Results & Data ([facility]) Vital Signs (Past 12 Hours) Vital Signs Temp Pulse Resp BP Pulse Ox 05/05/20 03:49 36.7 C 70 16 113/72 96 05/04/20 23:17 36.7 C 65 16 108/65 97 Diagnostic Findings Postoperative x-rays of the left knee show the prosthesis to be in anatomic alignment without any evidence of fracture, dislocation, or loosening. PG Care Time/CCT Total # of Minutes Spent Total Time Spent with Patient: Total time spent is greater than 50% in coordination of care (as documented) at patient's floor/unit and/or counseling patient: Coding Level of Care Code None Diagnoses Status post left knee replacement Z96.652
--- NOTE | 2020-05-05 07:54 | Discharge Summary ---
Date of Service May 05, 2020 Admission HPI Per Admitting Provider Serena is a pleasant 75-year-old female whom I been treating for primary osteoarthritis of her left knee for the past 3 years. I did given her serial injections. She tried a Synvisc injection without much relief. Unfortunately her knee pain starting to affect her daily activities. After failing conservative treatment, she has elected to proceed with a left total knee arthroplasty. Principal Diagnosis Left knee replacement Discharge Data Allergies Allergy/AdvReac Type Severity Reaction Status Date / Time cephalexin Allergy Mild Rash Verified 05/04/20 05:45 ethinyl estradiol Allergy Mild sinus Verified 05/04/20 05:45 [From Seasonale ()] aches, sneezing, congestion levonorgestrel Allergy Mild sinus Verified 05/04/20 05:45 [From Seasonale ()] aches, sneezing, congestion Consultations 05/04/20 10:15 Consult Case Management - Discharge Planning Routine Procedures Performed Operation Date: 05/04/20 07:00 Actual Procedures p Left Total Knee Arthroplasty(Left) - Cj Baker DO Ordered Studies 05/04/20 05:00 US guide needle placement Routine Hospital Course (1) Status post left knee replacement: On May 04, 2020 Serena arrived at [facility] and underwent a left total knee arthroplasty without complication. She had a spinal anesthetic. Postoperatively she was started on aspirin for DVT prophylaxis and transferred to the general orthopedic floors. Her hospital course was uneventful. On postop day #1 her H&H was stable and her pain was well controlled. She was able to participate well with physical therapy doing ambulation and range of motion exercises. She was then discharged home. She can follow-up with orthopedics in 2 weeks. Total Time Total Time Spent Total Time Spent (In Minutes): 20 Discharge Plan Discharge Items Patient Disposition: Home - Home Health Services Reason For Visit: Osteoarthritis of left knee Discharge Diagnosis: Left knee replacement Activity: As commented below Non-emergency contact: Surgeon Call non-emergency contact if: your wound has increased redness and your wound has increased drainage Follow-up/Referrals: Alli Price MD [Primary Care Provider] - Diet: Carb Consistent or DM2 Addtl Attending Provider Instructions: Activity and Therapy Recommendations: * If you are using [facility] then therapy will be provided at your home until they feel you have accomplished all of your goals. * If you are using [facility] then Physical Therapy will be provided until they feel you are ready to start Outpatient Physical Therapy. * If you are not using home therapy then Outpatient Physical Therapy should start about 3-5 days from your day of surgery. Therapy will last about 6-10 weeks * It is important not to put a pillow under your knee when you are relaxing or sleeping. It is just as important to make sure you are getting your knee perfectly straight as it is to regain your knee bend. * You were shown a series of exercises in the hospital. Do these exercises three times each day including the exercises you were shown in physical therapy. * Get up and walk several times each day. For the first four weeks, try not to stand or walk for more than one hour at a time. If you do stand or walk for more than one hour, you will not hurt anything, but your leg will likely swell. * As you feel comfortable, you may change from the walker or crutches to a cane and then to independent walking. Medications: * Narcotic You will likely be sent home from the hospital with a prescription for the narcotic pain medication that worked best throughout your stay. * Aspirin Most patients will be required to take Aspirin 81mg twice a day for 6 weeks after surgery. This is obtained [id number] and a prescription is not necessary. * Other medications may be prescribed for specific circumstances. If you have any questions, please call the office at . * Resume previous home medications unless otherwise instructed TEDs/Elastic Stockings: The white elastic stockings help limit swelling and prevent blood clots from forming in your legs.~ The more you wear them, the more they work. Wear them for six weeks. Dressing Care: Leave the Silverlon dressing in place for 7 days. After 7 days you may remove the dressing. If the incision is not draining then you may leave the wayne open to air. If there is a little bit of drainage or if the wayne are getting stuck on your clothing then cover the incision with a dry dressing. The wayne will be removed at your 2 week follow-up appointment. Showering: You may shower with the Silverlon dressing in place. Do not let the shower spray hit the dressing directly. Pat the Silverlon dressing dry. If the dressing becomes wet underneath, then simply remove the dressing. Keep the incision dry until you are 7 days out from the day of surgery. After 7 days you may remove the Silverlon dressing and shower with the wayne exposed. Let soapy water run over the wayne and pat them dry. Do not scrub or soak the incision. Things To Watch For: * Drainage from the incision site that occurs more than one week after your surgery. * Increased redness at the incision site. * Fever above 102 degrees Fahrenheit. * Unusual chest pain or shortness of breath. * Call [facility] at with any of the above problems Follow-Up Visit: Follow-up with Dr. Baker's PA (Cj Ding) 2-3 weeks after your day of surgery. He will remove your wayne and answer any questions. If you have any additional questions or concerns, Dr Baker is usually in the office at the same time and will be available An appointment was probably scheduled when you signed-up for surgery in the office. If you have any questions call Office Instructions: More detailed instructions as well as Frequently Asked Questions were provided in a folder by our office when you signed-up for surgery. Please review these instructions when you get home. If you have any further questions or concerns, please feel free to call the office at [phone] Pending Studies at Discharge: No Stand-Alone Forms: My [facility], Smoking Cessation Medications and DC Order Prescriptions: New oxycodone 5 mg Tablet 5 mg PO Q4H PRN (Reason: pain) Qty: 30 RF: 0 aspirin 81 mg Tablet,Delayed Release (Dr/Ec) 81 mg PO BID 42 Days Qty: 0 RF: 0 Continued amlodipine 5 mg tablet 5 mg PO QAM RF: 0 lisinopril 20 mg tablet 20 mg PO QAM RF: 0 multivitamin Tablet 1 tab PO QAM RF: 0 cholecalciferol (vitamin D3) 125 mcg (5,000 unit) capsule 125 mcg PO QAM RF: 0 mecobalamin (vitamin B12) 1,000 mcg tablet,chewable 1,000 mcg PO QAM RF: 0 metformin 500 mg Tablet 500 mg PO BID RF: 0 gabapentin 300 mg Capsule 300 mg PO TID RF: 0 fluticasone propionate [Flonase] 50 mcg/actuation [place],Suspension 1 spray INTRANASAL PM RF: 0 tamoxifen 20 mg Tablet 20 mg PO PM RF: 0 omeprazole 20 mg Tablet,Delayed Release (Dr/Ec) 20 mg PO QAM RF: 0 Discharge Orders: Discharge Order (Routine); Ordered 05/05/20 Ordered By: Cj Baker Admission Data Admit Date/Time: 05/04/20 08:42 Attending Provider: Cj Baker Admit Provider: Cj Baker Primary Care Provider: Alli Price Coding Level of Care Code D/C Day Management <30 mins Diagnoses Status post left knee replacement Z96.652
[2020-05-05 07:56] LABS: Hematocrit (blood only) 30.3 % (37-47); Hemoglobin 10.4 g/dL (12.0-16.0); Mean Corpuscular Hemoglobin 30.5 pg (25-34); Mean Corpuscular Hgb Conc 34.3 g/dL (32-36); Mean Corpuscular Volume 88.9 fL (80-100); Mean Platelet Volume 9.5 fL (7.4-10.4); Platelet Count 277 K/uL (130-400); RDW Coefficient of Variation 13.8 % (11.5-14.5); RDW Standard Deviation 45.4 fL (36.4-46.3); Red Blood Count 3.41 M/uL (4.2-5.4); White Blood Count 15.34 K/uL (4.8-10.8)
[2020-05-05 08:00] VITALS: BP 115/70; TEMP 97.3; O2SAT 99
[2020-05-05 08:12] LABS: Estimated Average Glucose 131 mg/dl; Hemoglobin A1C 6.2 % (4.5-5.6)
[2020-05-05] MEDS: lisinopriL 20 MG TAB PO SCH (08:20)
[2020-05-05] MEDS: ASPIRIN 81 MG ECTAB PO SCH (08:21)
[2020-05-05] MEDS: DOCUSATE SODIUM 100 MG CAP PO SCH (08:21)
[2020-05-05] MEDS: MULTIVITAMIN TAB PO SCH (08:21)
[2020-05-05] MEDS: GABAPENTIN 300 MG CAP PO SCH (08:22)
[2020-05-05] MEDS: INSULIN ASPART 100 UNITS/ML 3 ML PEN SC SCH ×2 (08:27→12:41)
[2020-05-05 08:30] LABS: BUN Creatinine Ratio 24.3 (10-20); Calcium 8.3 mg/dl (8.5-10.1); Creatinine Clr Calc Pharmacy 51.2 ml/min; Est GFR (African American) 62.8; Est GFR (Non-African American) 54.1; Potassium 3.7 mmol/L (3.5-5.1)
[2020-05-05] MEDS ORDERED: AMLODIPINE BESYLATE 5 MG TAB PO SCH (09:00)
[2020-05-05] MEDS ORDERED: PANTOprazole 40 MG TAB PO SCH (09:00)
[2020-05-05 10:51] VITALS: PULSE 76
== END 2020-05-05 13:53 | disposition home health service (06) ==
LOC: ASU 05:10 → 3E 05:10
DX: R73.03 Prediabetes; Z88.1 Allergy status to other antibiotic agents; Z88.8 Allergy status to other drugs, medicaments and biological substances; Z79.84 Long term (current) use of oral hypoglycemic drugs; I10 Essential (primary) hypertension; M17.12 Unilateral primary osteoarthritis, left knee; K21.9 Gastro-esophageal reflux disease without esophagitis; Z79.899 Other long term (current) drug therapy